=== PATIENT | female | born 1965 | race Caucasian/White ===

== ENCOUNTER → 2025-02-25 20:03 | Outpatient (REF) | payer BC, SELFPAY | LOC: PAVMRI 20:03 | PROVIDERS: ATTENDING PHYSICIAN Orthopaedic Surgery; FAMILY PHYSICIAN Family Medicine | DX: M72.2 Plantar fascial fibromatosis (principal); G57.52 Tarsal tunnel syndrome, left lower limb; M67.02 Short Achilles tendon (acquired), left ankle | CPT/HCPCS: 73721 ==